=== PATIENT | male | born 1955 | race Caucasian/White ===

== ENCOUNTER 2020-04-18 08:36 | Outpatient (RCR) | payer MEDICARE, OTHER | END 2020-06-27 | disposition home or self-care (01) | LOC: ONC 08:36 | PROVIDERS: ATTEND Radiology Radiation Oncology | DX: C64.1 Malignant neoplasm of right kidney, except renal pelvis (principal); C79.51 Secondary malignant neoplasm of bone; I10 Essential (primary) hypertension; Z80.41 Family history of malignant neoplasm of ovary; Z80.7 Family history of other malignant neoplasms of lymphoid, hematopoietic and related tissues | CPT/HCPCS: 77290; 77295; 77300; 77334; 77336; 77417; 77470; 99204 ==